=== PATIENT | male | born 1960 | race Caucasian/White ===

== ENCOUNTER 2016-11-02 07:50 | Day surgery (SDC) | payer OTHER ==
[~2016-11-02] VITALS: Ht 167.6 cm; Wt 108.5 kg
[2016-11-02 08:52] VITALS: Ht 167.6 cm; Wt 108.5 kg
[2016-11-02] MEDS ORDERED: FELODIPINE (09:07)
[2016-11-02 09:16] VITALS: BP 157/95; PULSE 62; RESP 18
[2016-11-02] MEDS ORDERED: FENTAnyl 50 MCG/ML VIAL ONE (09:57)
[2016-11-02] MEDS ORDERED: MIDAZOLAM 1 MG/ML 2 ML INJ ONE ×2 (09:57)
[2016-11-02 10:15] VITALS: BP 140/89; PULSE 63; RESP 17
--- NOTE | 2016-11-02 14:33 | GILP ---
DATE OF PROCEDURE: PROCEDURE: Esophagogastroduodenoscopy with biopsy. INDICATION: A 55-year-old male undergoing this procedure for epigastric discomfort, chronic heartbu rn. The risk of the procedure, related and unrelated complications, anesthetic risks, alternatives discussed and informed consent was obtained. DESCRIPTION OF PROCEDURE: The patient was brought to the GI lab, sedated with Versed 3 mg, fentanyl 75 mg after optimum sedation, scope was passed with much ease into esophagus. Z line was at 40 cm. The esophagus was grossly within normal limits. Stomach mucosa revealed pangastritis, more pronou nced in the fundal and mid portion of the body of the stomach involving the entire fundus and the lalitha dy. The patient had a classical demarcation between the mid portion of the body and the rest of the stomach. Multiple biopsies obtained at the margin to rule out H. pylori infection. Duodenum , first and second part appeared normal. Retroflexion confirmed severe gastritis. Scope was straig htened out and removed with good patient tolerance. IMPRESSION 1. Pangastritis, severe in the fundal and the proximal body of the stomach. Multiple biopsies obta ined. 2. Normal esophagus with Z-line at 40 cm. 3. Normal duodenum. PLAN: Review histopathology. The patient should continue PPI in the interim. Dictated By: DIAZ NOLASCO/KITA Conf#: [id number] DID#: [id number] CC: Phillip POON;*EndCC*
== END 2016-11-02 16:31 | disposition home or self-care (01) ==
LOC: GIL 07:50
PROVIDERS: ATTEND Internal Medicine Gastroenterology
DX: K29.30 Chronic superficial gastritis without bleeding (principal)
CPT/HCPCS: 43239; 88305; 88312; J2250; J3010; Z7610